=== PATIENT | female | born 1960 | race Caucasian/White ===

== ENCOUNTER → 2019-02-20 | Outpatient (CLI) | payer BC ==
--- NOTE | 2019-02-20 12:45 | CT ---
EXAMINATION TYPE: CT abdomen pelvis wo con DATE OF EXAM: 02/20/2019 HISTORY: Right sided flank pain. History of renal stones CT DLP: 778.1 mGycm. Automated Exposure Control for Dose Reduction was Utilized. TECHNIQUE: CT scan of the abdomen and pelvis is performed without oral or IV contrast. COMPARISON: Renal ultrasound February 11, 2015 FINDINGS: Within the limitations of a non-contrast study, the following observations are made. LUNG BASES: Some patchy bibasilar linear scarring and/or atelectasis. LIVER/GB: No significant abnormality is appreciated. PANCREAS: Some mild to moderate generalized atrophy of the pancreas particularly distal body and tail . SPLEEN: Single calcification posterior spleen axial image 27. ADRENALS: No significant abnormality is seen. KIDNEYS: No renal stones or hydronephrosis is clearly seen bilaterally. Left mid abdominal phlebolith noted axial image 70 just lateral to the left proximal to mid ureter. BOWEL: Suboptimal evaluation of bowel without enteric contrast. No suspicious small bowel dilatation. Terminal ileum seen in the upper right abdomen axial images 95 and 96. Slightly abnormal in position ing along right slight posterior aspect. The right colon shows moderate to severe concentric wall thi ckening up to the proximal to mid transverse colon where there is moderate to severe fecal prominence . There is mild to moderate concentric wall thickening distal transverse colon through the splenic fl exure and involving entire left colon with mild mucosal thickening seen in the remainder of the sigmo id colon. There are suspected small bowel feces sign involving the anterior right pelvis with focal p rominent fecal filled small bowel loop axial image 105 measuring 3.2 cm diameter mildly dilated. GENITAL ORGANS: Uterus poorly seen and may be surgically absent or atrophic. LYMPH NODES: No greater than 1cm abdominal or pelvic lymph nodes are appreciated. OSSEOUS STRUCTURES: Severe disc space narrowing lumbosacral junction with moderate anterior spurring. OTHER: No significant additional abnormality is seen. IMPRESSION: 1. No renal stones or hydronephrosis is seen bilaterally. 2. Overall nonspecific but favor nonobstructive bowel gas pattern. Small bowel feces sign consistent with delayed passage of ingested material to colonic level. Multifocal colitis is thought present mos t prominent involving the right colon including hepatic flexure. Moderate to severe fecal stasis mid to distal transverse colon. Correlate clinically. Differential includes infectious and inflammatory e tiologies.
== END | disposition home or self-care (01) ==
LOC: RADCTMAIN 11:43
PROVIDERS: ATTEND Urology
DX: K52.9 Noninfective gastroenteritis and colitis, unspecified (principal); K59.8 Other specified functional intestinal disorders; N23 Unspecified renal colic
CPT/HCPCS: 74176

== ENCOUNTER 2019-06-10 13:17 | Inpatient (IN) | payer BC ==
[2019-06-10 13:48] LABS: Basophils % (A) 0 %; Eosinophils # (A) 0.1 k/uL (0-0.7); Eosinophils % (A) 2 %; HCT 37.5 % (34.0-46.0); HGB 12.1 gm/dL (11.4-16.0); Lymphocytes # (A) 0.6 k/uL (1.0-4.8); Lymphocytes % (A) 10 %; MCH 28.5 pg (25.0-35.0); MCHC 32.3 g/dL (31.0-37.0); MCV 88.2 fL (80.0-100.0); Mean Platelet Volume 7.7; Monocytes # (A) 0.4 k/uL (0-1.0); Monocytes % (A) 6 %; Neutrophils # (A) 4.6 k/uL (1.3-7.7); Neutrophils % (A) 79 %; Platelet Count 188 k/uL (150-450); RBC 4.25 m/uL (3.80-5.40); RDW 12.9 % (11.5-15.5); WBC 5.9 k/uL (3.8-10.6)
[2019-06-10 13:58] LABS: ALT 12 U/L (4-34); AST 19 U/L (14-36); African American GFR (CKD) >90 (>60 ml/min/1.73 sqM); Albumin 3.8 g/dL (3.5-5.0); Alkaline Phosphatase 110 U/L (38-126); Anion Gap 12 mmol/L; Blood Urea Nitrogen 18 mg/dL (7-17); Calcium 8.6 mg/dL (8.4-10.2); Carbon Dioxide 23 mmol/L (22-30); Chloride 99 mmol/L (98-107); Glucose 394 mg/dL (74-99); Non-African American GFR(CKD) 87 (>60 ml/min/1.73 sqM); Potassium 4.3 mmol/L (3.5-5.1); Sodium 134 mmol/L (137-145); Total Bilirubin 0.9 mg/dL (0.2-1.3); Total Protein 6.9 g/dL (6.3-8.2)
--- NOTE | 2019-06-10 14:03 | XR ---
EXAMINATION TYPE: XR chest 2V DATE OF EXAM: 06/10/2019 COMPARISON: NONE HISTORY: Cough TECHNIQUE: FINDINGS: Heart is normal. There is a mild infiltrate in the left lower lobe posteriorly. The other l shamir vargas are clear. Diaphragm is normal. Bony thorax is intact. There is no heart failure. IMPRESSION: Mild left lower lobe pneumonia.
--- NOTE | 2019-06-10 14:06 | ED ---
General Adult HPI - General Source: patient, RN notes reviewed Mode of arrival: ambulatory Limitations: no limitations <Morgan Lin - Last Filed: 06/10/19 14:33> <Zafar Mcdermott - Last Filed: 06/10/19 14:41> - General Chief complaint: Upper Respiratory Infection Stated complaint: SOB Time Seen by Provider: 06/10/19 13:24 - History of Present Illness Initial comments: Is a 58-year-old female presents emergency Department chief complaint chest pain, shortness of breath. Patient states that symptoms started over the last couple days she's developed a fever 101-102 at home. No Tylenol Motrin taken today. Patient states that her chest feels very heavy feels like something sitting on her. Patient does admit she had a cough which is nonproductive. Patient does admit she is a type I diabetic on insulin pump her blood sugars have been elevated in the 300s. Patient denies any ear pain, sore throat has no complaints of abdominal pain including nausea vomiting diarrhea constipation no sick contacts. Patient has no prior cardiac disease. (Morgan Lin) - Related Data Home Medications Medication Instructions Recorded Confirmed Aspirin 81 mg PO QAM 01/02/15 01/02/15 Cholecalciferol [Vitamin D3] 2,000 unit PO QAM 01/02/15 01/02/15 Ciprofloxacin HCl [Cipro] 500 mg PO Q12HR 01/02/15 01/02/15 Docusate [Colace] 100 mg PO DAILY 01/02/15 01/02/15 Fluticasone Propionate [Flonase 1 spray EA NOSTRIL BID PRN 01/02/15 01/02/15 Allergy Relief] Gabapentin [Neurontin] 300 mg PO BID@0700,1500 01/02/15 01/02/15 Gabapentin [Neurontin] 600 mg PO HS@2300 01/02/15 01/02/15 INSULIN LISPRO (HumaLOG) [HumaLOG] See Protocol SQ CONTINUOUS 01/02/15 01/02/15 Levothyroxine Sodium [Synthroid] 50 mcg PO QAM 01/02/15 01/02/15 Lisinopril [Zestril] 20 mg PO HS 01/02/15 01/02/15 Simvastatin [Zocor] 20 mg PO HS 01/02/15 01/02/15 Previous Rx's Medication Instructions Recorded Hydrocodone/Acetaminophen [Christmas 1 - 2 each PO Q4HR PRN #15 tab 01/03/15 5-325] Allergies Allergy/AdvReac Type Severity Reaction Status Date / Time adhesive tape Allergy Rash/Hives Verified 06/10/19 14:30 codeine Allergy rash & Verified 06/10/19 13:23 constipation meloxicam Allergy very Verified 06/10/19 14:29 frequent bloody noses tramadol Allergy blood Verified 06/10/19 14:29 sugar drops Review of Systems ROS Other: All systems not noted in ROS Statement are negative. <Morgan Lin - Last Filed: 06/10/19 14:33> ROS Other: All systems not noted in ROS Statement are negative. <Zafar Mcdermott - Last Filed: 06/10/19 14:41> ROS Statement: Those systems with pertinent positive or pertinent negative responses have been documented in the HPI. Past Medical History Past Medical History: Diabetes Mellitus, Hyperlipidemia, Hypertension, Thyroid Disorder Additional Past Medical History / Comment(s): anemia, stress incontinence, arthritis, chronic back pain, History of Any Multi-Drug Resistant Organisms: None Reported Past Surgical History: Appendectomy, Back Surgery, Section, Hysterectomy Additional Past Surgical History / Comment(s): Back injections, bilateral cataract removal with lens implants, cervical fusion, hysterectomy with bilateral partial oophorectomies, colonoscopy-normal, x 1. Additional Past Anesthesia/Blood Transfusion Reaction / Comment(s): Pt has never recieved blood. Past Psychological History: No Psychological Hx Reported Smoking Status: Never smoker Past Alcohol Use History: None Reported Past Drug Use History: None Reported - Past Family History Father Family Medical History: Cancer Additional Family Medical History / Comment(s): Father of bone cancer at age 72. Mother Additional Family Medical History / Comment(s): Mother of cirrhosis of the liver at age 45yrs. <Morgan Lin - Last Filed: 06/10/19 14:33> General Exam Limitations: no limitations General appearance: alert, in no apparent distress Head exam: Present: atraumatic, normocephalic, normal inspection Eye exam: Present: normal appearance, PERRL, EOMI. Absent: scleral icterus, c onjunctival injection, periorbital swelling ENT exam: Present: normal exam, normal oropharynx, mucous membranes moist Neck exam: Present: normal inspection. Absent: tenderness, meningismus, lymphadenopathy Respiratory exam: Present: normal lung sounds bilaterally. Absent: respiratory distress, wheezes, rales, rhonchi, stridor Cardiovascular Exam: Present: regular rate, normal rhythm, normal heart sounds. Absent: systolic murmur, diastolic murmur, rubs, gallop, clicks GI/Abdominal exam: Present: soft, normal bowel sounds. Absent: distended, tenderness, guarding, rebound, rigid Neurological exam: Present: alert, oriented X3, CN II-XII intact Skin exam: Present: warm, dry, intact, normal color. Absent: rash <Morgan Lin - Last Filed: 06/10/19 14:33> Course <Zafar Mcdermott - Last Filed: 06/10/19 14:41> Vital Signs 06/10/19 06/10/19 06/10/19 13:20 14:00 14:23 Temperature 98.0 F 98.1 F Pulse Rate 91 87 82 Respiratory 18 13 14 Rate Blood Pressure 138/71 126/49 129/52 O2 Sat by Pulse 100 97 97 Oximetry - Reevaluation(s) Reevaluation #1: 06/10/19 14:40 PA supervision: I personally evaluate this case and patient patient presents with complaints of chest pain shortness of breath is evidence of pneumonia. Patient be admitted the case is discussed with Dr. Esquivel (Zafar Mcdermott) EKG Findings - EKG Comments: EKG Findings:: EKG performed at 13:31 normal sinus rhythm rate of 89 AR 132 QRS 84 QT status QTC 350/425 <Morgan Lin - Last Filed: 06/10/19 14:33> Medical Decision Making - Lab Data Result diagrams: 06/10/19 13:30 06/10/19 13:30 <Morgan Lin - Last Filed: 06/10/19 14:33> - Lab Data Result diagrams: 06/10/19 13:30 06/10/19 13:30 <Zafar Mcdermott - Last Filed: 06/10/19 14:41> - Medical Decision Making 58-year-old female presents emergency room for chest pain, chest pressure and cough. Patient's complaint of fever at home, afebrile at this time this x-ray shows evidence of pneumonia, patient's found to be leukopenic, elevated d-dimer, elevated CRP this concern for probable COVID 19. Patient was given Rocephin, doxycycline, hydroxychloroquine at this time. Case discussed with Dr. Esquivel who will evaluate the patient and admitted at this time. (Morgna Lin) - Lab Data Lab Results 06/10/19 06/10/19 06/10/19 Range/Units 13:30 13:30 13:30 WBC 5.9 (3.8-10.6) k/uL RBC 4.25 (3.80-5.40) m/uL Hgb 12.1 (11.4-16.0) gm/dL Hct 37.5 (34.0-46.0) % MCV 88.2 (80.0-100.0) fL MCH 28.5 (25.0-35.0) pg MCHC 32.3 (31.0-37.0) g/dL RDW 12.9 (11.5-15.5) % Plt Count 188 (150-450) k/uL Neutrophils % 79 % Lymphocytes % 10 % Monocytes % 6 % Eosinophils % 2 % Basophils % 0 % Neutrophils # 4.6 (1.3-7.7) k/uL Lymphocytes # 0.6 L (1.0-4.8) k/uL Monocytes # 0.4 (0-1.0) k/uL Eosinophils # 0.1 (0-0.7) k/uL Basophils # 0.0 (0-0.2) k/uL PT 9.8 (9.0-12.0) sec INR 0.9 (<1.2) APTT 19.0 L (22.0-30.0) sec D-Dimer 0.76 H (<0.60) mg/L FEU Sodium 134 L (137-145) mmol/L Potassium 4.3 (3.5-5.1) mmol/L Chloride 99 (98-107) mmol/L Carbon Dioxide 23 (22-30) mmol/L Anion Gap 12 mmol/L BUN 18 H (7-17) mg/dL Creatinine 0.76 (0.52-1.04) mg/dL Est GFR (CKD-EPI)AfAm >90 (>60 ml/min/1.73 sqM) Est GFR (CKD-EPI)NonAf 87 (>60 ml/min/1.73 sqM) Glucose 394 H (74-99) mg/dL Plasma Lactic Acid Bala (0.7-2.0) mmol/L Calcium 8.6 (8.4-10.2) mg/dL Magnesium 2.0 (1.6-2.3) mg/dL Total Bilirubin 0.9 (0.2-1.3) mg/dL AST 19 (14-36) U/L ALT 12 (4-34) U/L Alkaline Phosphatase 110 (38-126) U/L C-Reactive Protein 153.9 H (<10.0) mg/L Total Protein 6.9 (6.3-8.2) g/dL Albumin 3.8 (3.5-5.0) g/dL Influenza Type A RNA (Not Detectd) Influenza Type B (PCR) (Not Detectd) 06/10/19 06/10/19 Range/Units 13:30 13:45 WBC (3.8-10.6) k/uL RBC (3.80-5.40) m/uL Hgb (11.4-16.0) gm/dL Hct (34.0-46.0) % MCV (80.0-100.0) fL MCH (25.0-35.0) pg MCHC (31.0-37.0) g/dL RDW (11.5-15.5) % Plt Count (150-450) k/uL Neutrophils % % Lymphocytes % % Monocytes % % Eosinophils % % Basophils % % Neutrophils # (1.3-7.7) k/uL Lymphocytes # (1.0-4.8) k/uL Monocytes # (0-1.0) k/uL Eosinophils # (0-0.7) k/uL Basophils # (0-0.2) k/uL PT (9.0-12.0) sec INR (<1.2) APTT (22.0-30.0) sec D-Dimer (<0.60) mg/L FEU Sodium (137-145) mmol/L Potassium (3.5-5.1) mmol/L Chloride (98-107) mmol/L Carbon Dioxide (22-30) mmol/L Anion Gap mmol/L BUN (7-17) mg/dL Creatinine (0.52-1.04) mg/dL Est GFR (CKD-EPI)AfAm (>60 ml/min/1.73 sqM) Est GFR (CKD-EPI)NonAf (>60 ml/min/1.73 sqM) Glucose (74-99) mg/dL Plasma Lactic Acid Bala 1.4 (0.7-2.0) mmol/L Calcium (8.4-10.2) mg/dL Magnesium (1.6-2.3) mg/dL Total Bilirubin (0.2-1.3) mg/dL AST (14-36) U/L ALT (4-34) U/L Alkaline Phosphatase (38-126) U/L C-Reactive Protein (<10.0) mg/L Total Protein (6.3-8.2) g/dL Albumin (3.5-5.0) g/dL Influenza Type A RNA Not Detected (Not Detectd) Influenza Type B (PCR) Not Detected (Not Detectd) Disposition <Morgan Lin - Last Filed: 06/10/19 14:33> <Zafar Mcdermott - Last Filed: 06/10/19 14:41> Clinical Impression: Pneumonia, Hyperglycemia, Chest pain Narrative: Probable COVID 19 (Morgan Lin) Disposition: ADMITTED IP TO THIS HOSP Condition: Serious Referrals: Erwin Jeffries MD [Primary Care Provider] - 1-2 days
[2019-06-10 14:10] LABS: C Reactive Protein 153.9 mg/L (<10.0)
[2019-06-10 14:11] LABS: INR 0.9 (<1.2); Prothrombin Time 9.8 sec (9.0-12.0)
[2019-06-10 14:15] LABS: D-Dimer 0.76 mg/L FEU (<0.60)
[2019-06-10] MEDS ORDERED: cefTRIAXone IN SWFI 1,000 MG/10 ML SYRINGE IVP STA (14:16)
[2019-06-10] MEDS ORDERED: ALBUTEROL HFA INHALER INHALATION PRN (14:28)
[2019-06-10] MEDS ORDERED: HYDROcodone/APAP 5-325MG 1 EACH TAB PO PRN (14:36)
[2019-06-10] MEDS ORDERED: DOXYCYCLINE 100 MG in SODIUM CHLORIDE 0.9% 100 ML IVPB ONE (15:00)
[2019-06-10 16:48] LABS: Glucose,Whole Blood 275 mg/dL (75-99)
[2019-06-10] MEDS: INSULIN ASPART (NovoLOG) 100 UNIT/ML VIAL SQ SCH ×2 (19:04→20:39)
[2019-06-10] MEDS ORDERED: NON FORMULARY DRUG IV SCH (19:15)
[2019-06-10] MEDS: HYDROXYCHLOROQUINE SULFATE 200 MG TAB PO SCH (20:39)
[2019-06-10 20:51] LABS: Glucose,Whole Blood 179 mg/dL (75-99)
[2019-06-10] MEDS ORDERED: LISINOPRIL 20 MG TAB PO SCH (21:00)
[2019-06-10] MEDS ORDERED: GABAPENTIN 300 MG CAP PO STA (21:45)
--- NOTE | 2019-06-10 23:29 | P.HPIM ---
History of Present Illness H&P Date: 06/10/19 Chief Complaint: Shortness of breath and fever Patient is a 58-year-old female with a known history of hypertension, diabetes type 1 on insulin pump, hypothyroidism and other multiple medical problems came to the hospital with the complaints of fever and shortness of breath for the past 3 days. Patient states that she was febrile at home with T-max of 102. Patient is also complaining of her chest feeling very heavy and difficulty in breathing. Does have cough without sputum production. No history of prior smoking or no history of asthma. Denied any nausea or vomiting. No complaint of abdominal pain. No diarrhea. Denied any sick contacts. Denied any leg swelling. Chest x-ray showed mild left lower lobe pneumonia. EKG showed normal sinus rhythm. Patient is currently saturating well on room air. WBC 5.9, lymphocytes 0.6 D-dimer slightly elevated 0.76, blood sugar is 356 and CRP 153.9. Influenza negative. Review of Systems Constitutional: Fever and chills and generalized weakness. No weight loss. Abdomen: Patient denied nausea vomiting and diarrhea and abdominal pain. Cardiovascular: Patient denies any chest pain or short of breath no palpitations. Chest tightness. Respiratory: Cough without shortness of breath and shortness of breath Neurologic: Patient denied any numbness or tingling headache. Musculoskeletal: Patient denies any complaints of joint swelling or deformity. Skin: Negative Psychiatric: Negative Endocrine: No heat or cold intolerance. No recent weight gain. Genitourinary: No dysuria or hematuria. All other 14 point ROS negative except the above Past Medical History Past Medical History: Diabetes Mellitus, Hyperlipidemia, Hypertension, Thyroid Disorder Additional Past Medical History / Comment(s): anemia, stress incontinence, arthritis, chronic back pain, History of Any Multi-Drug Resistant Organisms: None Reported Past Surgical History: Appendectomy, Back Surgery, Section, Hysterectomy Additional Past Surgical History / Comment(s): Back injections, bilateral cataract removal with lens implants, cervical fusion, hysterectomy with bilateral partial oophorectomies, colonoscopy-normal, x 1. Additional Past Anesthesia/Blood Transfusion Reaction / Comment(s): Pt has never recieved blood. Smoking Status: Never smoker Past Alcohol Use History: None Reported Past Drug Use History: None Reported - Past Family History Father Family Medical History: Cancer Additional Family Medical History / Comment(s): Father of bone cancer at age 72. Mother Additional Family Medical History / Comment(s): Mother of cirrhosis of the liver at age 45yrs. Medications and Allergies Home Medications Medication Instructions Recorded Confirmed Type Aspirin 81 mg PO DAILY 01/02/15 06/10/19 History Cholecalciferol [Vitamin D3] 2,000 unit PO DAILY 01/02/15 06/10/19 History Gabapentin [Neurontin] 300 mg PO BID@0700,1500 01/02/15 06/10/19 History Gabapentin [Neurontin] 600 mg PO HS@2300 01/02/15 06/10/19 History INSULIN LISPRO (HumaLOG) [HumaLOG] See Protocol SQ CONTINUOUS 01/02/15 06/10/19 History Simvastatin [Zocor] 20 mg PO HS 01/02/15 06/10/19 History Estradiol [Estrace] 1 mg PO DAILY 06/10/19 06/10/19 History Famotidine 20 mg PO BID-W/MEALS 06/10/19 06/10/19 History Levothyroxine Sodium [Synthroid] 88 mcg PO DAILY 06/10/19 06/10/19 History Losartan [Cozaar] 25 mg PO DAILY 06/10/19 06/10/19 History Tolterodine ER [Detrol LA] 4 mg PO DAILY 06/10/19 06/10/19 History metroNIDAZOLE 1% GEL [Metrogel 1%] 1 applic TOPICAL DAILY 06/10/19 06/10/19 History Allergies Allergy/AdvReac Type Severity Reaction Status Date / Time adhesive tape Allergy Rash/Hives Verified 06/10/19 14:30 codeine Allergy rash & Verified 06/10/19 13:23 constipation meloxicam Allergy very Verified 06/10/19 14:29 frequent bloody noses tramadol Allergy blood Verified 06/10/19 14:29 sugar drops Physical Exam Vitals: Vital Signs Temp Pulse Pulse Resp BP BP Pulse Ox 06/10/19 20:00 98.6 F 83 18 142/66 95 06/10/19 16:00 98.6 F 90 20 129/67 99 06/10/19 15:35 82 14 134/56 97 06/10/19 14:23 82 14 129/52 97 06/10/19 14:00 98.1 F 87 13 126/49 97 06/10/19 13:20 98.0 F 91 18 138/71 100 Intake and Output 06/10/19 06/10/19 06/10/19 06:59 14:59 22:59 Intake Total 240 Balance 240 Intake: Oral 240 Other: Voiding Method Toilet Weight 87.543 kg PHYSICAL EXAMINATION: Patient is lying in the bed comfortably, no acute distress, awake alert and oriented.. HEENT: Normocephalic. Neck is supple. Pupils reactive. Nostrils clear. Oral cavity is moist. Ears reveal no drainage. Neck reveals no JVD, carotid bruits, or thyromegaly. CHEST EXAMINATION: Trachea is central. Symmetrical expansion. Bibasilar diminished air entry. Lung vargas clear to auscultation and percussion. CARDIAC: Normal S1, S2 with no gallops. No murmurs ABDOMEN: Soft. Bowel sounds normal. No organomegaly. No abdominal bruits. Extremities: reveal no edema. No clubbing or cyanosis Neurologically awake, alert, oriented x3 with well-coordinated movements. No focal deficits noted Skin: No rash or skin lesions. Psychiatric: Coperative. Nonsuicidal Musculoskeletal: No joint swelling or deformity. Normal range of motion. Results CBC & Chem 7: 06/10/19 13:30 06/10/19 13:30 Labs: Abnormal Lab Results - Last 24 Hours (Table) 06/10/19 06/10/19 06/10/19 Range/Units 13:30 13:30 13:30 Lymphocytes # 0.6 L (1.0-4.8) k/uL APTT 19.0 L (22.0-30.0) sec D-Dimer 0.76 H (<0.60) mg/L FEU Sodium 134 L (137-145) mmol/L BUN 18 H (7-17) mg/dL Glucose 394 H (74-99) mg/dL POC Glucose (mg/dL) (75-99) mg/dL C-Reactive Protein 153.9 H (<10.0) mg/L 06/10/19 06/10/19 Range/Units 16:42 20:33 Lymphocytes # (1.0-4.8) k/uL APTT (22.0-30.0) sec D-Dimer (<0.60) mg/L FEU Sodium (137-145) mmol/L BUN (7-17) mg/dL Glucose (74-99) mg/dL POC Glucose (mg/dL) 275 H 179 H (75-99) mg/dL C-Reactive Protein (<10.0) mg/L Thrombosis Risk Factor Assmnt - DVT/VTE Prophylaxis DVT/VTE Prophylaxis: Pharmacologic Prophylaxis ordered - Choose All That Apply Any of the Below Risk Factors Present?: Yes Each Factor Represents 1 point: Age 41-60 years, Obesity (BMI >25) Other Risk Factors: No Other congenital or acquired thrombophilia - If yes, enter type in comment: No Thrombosis Risk Factor Assessment Total Risk Factor Score: 2 Thrombosis Risk Factor Assessment Level: Low Risk Assessment and Plan Assessment: -Acute febrile illness with dry cough and shortness of breath likely suspicious for covid 19 infection. Patient does have lymphopenia and slightly elevated d- dimer level and CRP level. Patient was started on hydroxychloroquine. Patient is currently on room air. Consider pulmonary evaluation. -Mild left lower lobe pneumonia. -Hyperglycemia with uncontrolled diabetes type 1 currently on insulin pump. - Hypertension Hyperlipidemia Hypothyroidism No history of smoking DVT prophylaxis. Plan: Patient will be continued on gentle hydration. Continue with oxygen therapy and monitor closely. Telemetry monitoring. Patient was started back on insulin pump and sliding scale as needed. Continue with home medications. Follow Covid 19 test report. Supportive therapy. Further recommendations based on the clinical course. Time with Patient: Greater than 30
[2019-06-11] MEDS: HEPARIN SODIUM,PORCINE 5,000 UNIT/ML 1 ML VIAL SQ SCH ×2 (01:27→08:19)
[2019-06-11] MEDS: SODIUM CHLORIDE 0.9% 1,000 ML IV SCH ×2 (01:28→11:41)
[2019-06-11 03:30] VITALS: RESP 18
[2019-06-11 05:43] LABS: Glucose,Whole Blood 228 mg/dL (75-99)
[2019-06-11] MEDS: INSULIN ASPART (NovoLOG) 100 UNIT/ML VIAL SQ SCH (06:05)
[2019-06-11 06:29] LABS: Basophils % (A) 0 %; Eosinophils # (A) 0.2 k/uL (0-0.7); Eosinophils % (A) 3 %; HCT 33.8 % (34.0-46.0); Lymphocytes # (A) 0.9 k/uL (1.0-4.8); Lymphocytes % (A) 19 %; MCH 28.6 pg (25.0-35.0); MCHC 32.6 g/dL (31.0-37.0); Mean Platelet Volume 7.8; Monocytes # (A) 0.4 k/uL (0-1.0); Monocytes % (A) 8 %; Neutrophils # (A) 3.2 k/uL (1.3-7.7); Neutrophils % (A) 66 %; Platelet Count 200 k/uL (150-450); RBC 3.84 m/uL (3.80-5.40); WBC 4.9 k/uL (3.8-10.6)
[2019-06-11] MEDS ORDERED: LEVOTHYROXINE 50 MCG TAB PO SCH (06:30)
[2019-06-11 06:43] LABS: African American GFR (CKD) >90 (>60 ml/min/1.73 sqM); Anion Gap 10 mmol/L; Blood Urea Nitrogen 17 mg/dL (7-17); Calcium 8.3 mg/dL (8.4-10.2); Carbon Dioxide 22 mmol/L (22-30); Chloride 103 mmol/L (98-107); Glucose 267 mg/dL (74-99); Non-African American GFR(CKD) >90 (>60 ml/min/1.73 sqM); Potassium 4.3 mmol/L (3.5-5.1); Sodium 135 mmol/L (137-145)
[2019-06-11] MEDS: HYDROXYCHLOROQUINE SULFATE 200 MG TAB PO SCH (08:20)
[2019-06-11] MEDS ORDERED: INSULIN LISPRO (For Pump) 100 UNIT/ML VIAL SQ-PUMP SCH (09:00)
--- NOTE | 2019-06-11 09:14 | CT ---
EXAMINATION TYPE: CT chest angio for PE DATE OF EXAM: 06/11/2019 COMPARISON: NONE HISTORY: elevated d-dimer CT DLP: 435.5 mGycm. Automated Exposure Control for Dose Reduction was Utilized. CONTRAST: CTA scan of the thorax is performed with IV Contrast, patient injected with 100 mL of Isovue 370, pul monary embolism protocol. MIP Images are created on CT scanner and reviewed. FINDINGS: LUNGS: Focal left basilar consolidation is seen with air bronchograms and surrounding groundglass opa cities. Geographic groundglass opacities are scattered throughout both lungs. No pneumothorax or pleu ral effusion. There is no pleural effusion or pneumothorax seen. The tracheobronchial tree is nazario nt. MEDIASTINUM: There is satisfactory enhancement of the pulmonary artery and its branches, there is no CT evidence for pulmonary embolism. There are no greater than 1 cm hilar or mediastinal lymph nodes. Heart is mildly enlarged. No pericardial effusion. The phase of contrast limits evaluation for coron arlen artery calcifications, however no gross coronary calcifications are seen. OTHER: Mild multilevel degenerative change of the spine. IMPRESSION: 1. Left lower lobe pneumonia. Multifocal geographic groundglass opacities also suggests a degree of f luid overload. 2. No evidence of pulmonary embolus.
[2019-06-11] MEDS ORDERED: INSULIN ASPART (NovoLOG) 100 UNIT/ML VIAL SQ PRN (09:45)
[2019-06-11] MEDS ORDERED: INSULIN PUMP BASAL RATES 1 EACH MISC MISCELLANE PRN (09:45)
[2019-06-11] MEDS ORDERED: INSPUCOR MISCELLANE PRN (09:45)
[2019-06-11] MEDS ORDERED: INSULIN PUMP TARGET GLUCOSE 1 EACH MISC MISCELLANE PRN (10:50)
[2019-06-11] MEDS ORDERED: INSULIN PUMP ACTIVE INSULIN 1 EACH MISC MISCELLANE PRN (10:50)
[2019-06-11 11:15] VITALS: BP 119/60; PULSE 82; TEMP 98.4
[2019-06-11 11:35] LABS: Glucose,Whole Blood 211 mg/dL (75-99)
--- NOTE | 2019-06-11 12:02 | P.DS ---
Providers Date of admission: 06/10/19 14:36 Attending physician: Odalis Esquivel Primary care physician: [facility] Hospital Course: 58-year-old female with a known history of hypertension, diabetes type 1 on insulin pump, hypothyroidism and other multiple medical problems came to the hospital with the complaints of fever and shortness of breath for the past 3 days. Patient states that she was febrile at home with T-max of 102. Patient is also complaining of her chest feeling very heavy and difficulty in breathing. Does have cough without sputum production. No history of prior smoking or no history of asthma. Denied any nausea or vomiting. No complaint of abdominal pain. No diarrhea. Denied any sick contacts. Denied any leg swelling. Chest x-ray showed mild left lower lobe pneumonia. EKG showed normal sinus rhythm. Patient is currently saturating well on room air. WBC 5.9, lymphocytes 0.6 D-dimer slightly elevated 0.76, blood sugar is 356 and CRP 153.9. Influenza negative. 06/11/2019 Patient's COVID19 testing is still pending patient is clinically doing well will be discharged on empiric the hydroxychloroquine and Rocephin as pneumonia cannot be ruled out completely. Note: Because of COVID 19 isolation, some of the history and physical exam findings or indirect and obtained from nursing staff, and other physician examinations to avoid unnecessary contact with the patient. PHYSICAL EXAMINATION: GENERAL: The patient is alert and oriented x3, not in any acute distress. Well developed, well nourished. HEENT: Pupils are round and equally reacting to light. EOMI. No scleral icterus. No conjunctival pallor. Normocephalic, atraumatic. No pharyngeal erythema. No thyromegaly. CARDIOVASCULAR: S1 and S2 present. No murmurs, rubs, or gallops. PULMONARY: Chest is clear to auscultation, no wheezing or crackles. ABDOMEN: Soft, nontender, nondistended, normoactive bowel sounds. No palpable organomegaly. MUSCULOSKELETAL: No joint swelling or deformity. EXTREMITIES: No cyanosis, clubbing, or pedal edema. NEUROLOGICAL: Gross neurological examination did not reveal any focal deficits. SKIN: No rashes. Assessment and Plan Assessment: -Acute febrile illness with dry cough and shortness of breath likely suspicious for covid 19 infection. Patient does have lymphopenia and slightly elevated d- dimer level and CRP level. Patient was started on hydroxychloroquine. Patient is currently on room air. -Mild left lower lobe pneumonia. -Hyperglycemia with uncontrolled diabetes type 1 currently on insulin pump. - Hypertension Hyperlipidemia Hypothyroidism No history of smoking DVT prophylaxis. Patient Condition at Discharge: Serious Plan - Discharge Summary Discharge Rx Participant: Yes New Discharge Prescriptions: New Cefuroxime Axetil [Ceftin] 500 mg PO BID 5 Days #10 tab Hydroxychloroquine Sulfate [Plaquenil] 200 mg PO BID #10 tab Albuterol Inhaler (Bulk) [Ventolin Hfa Inhaler (Bulk)] 1 - 2 puff INHALATION Q6HR PRN #1 inhaler PRN Reason: Shortness Of Breath Or Wheezing sitaGLIPtin PHOSPHATE [Januvia] 50 mg PO DAILY #30 tab Continue Cholecalciferol [Vitamin D3 (25 Mcg = 1000 Iu)] 2,000 unit PO DAILY Aspirin 81 mg PO DAILY INSULIN LISPRO (HumaLOG) [humaLOG] See Protocol SQ CONTINUOUS Gabapentin [Neurontin] 300 mg PO BID@0700,1500 Simvastatin [Zocor] 20 mg PO HS Gabapentin [Neurontin] 600 mg PO HS@2300 Famotidine 20 mg PO BID-W/MEALS metroNIDAZOLE 1% GEL [Metrogel 1%] 1 applic TOPICAL DAILY Tolterodine ER [Detrol LA] 4 mg PO DAILY Losartan [Cozaar] 25 mg PO DAILY Levothyroxine Sodium [Synthroid] 88 mcg PO DAILY Estradiol [Estrace] 1 mg PO DAILY Discharge Medication List Aspirin 81 mg PO DAILY 01/02/15 [History] Cholecalciferol [Vitamin D3 (25 Mcg = 1000 Iu)] 2,000 unit PO DAILY 01/02/15 [History] Gabapentin [Neurontin] 300 mg PO BID@0700,1500 01/02/15 [History] Gabapentin [Neurontin] 600 mg PO HS@2300 01/02/15 [History] INSULIN LISPRO (HumaLOG) [humaLOG] See Protocol SQ CONTINUOUS 01/02/15 [History] Simvastatin [Zocor] 20 mg PO HS 01/02/15 [History] Estradiol [Estrace] 1 mg PO DAILY 06/10/19 [History] Famotidine 20 mg PO BID-W/MEALS 06/10/19 [History] Levothyroxine Sodium [Synthroid] 88 mcg PO DAILY 06/10/19 [History] Losartan [Cozaar] 25 mg PO DAILY 06/10/19 [History] Tolterodine ER [Detrol LA] 4 mg PO DAILY 06/10/19 [History] metroNIDAZOLE 1% GEL [Metrogel 1%] 1 applic TOPICAL DAILY 06/10/19 [History] Albuterol Inhaler (Bulk) [Ventolin Hfa Inhaler (Bulk)] 1 - 2 puff INHALATION Q6HR PRN #1 inhaler 06/11/19 [Rx] Cefuroxime Axetil [Ceftin] 500 mg PO BID 5 Days #10 tab 06/11/19 [Rx] Hydroxychloroquine Sulfate [Plaquenil] 200 mg PO BID #10 tab 06/11/19 [Rx] sitaGLIPtin PHOSPHATE [Januvia] 50 mg PO DAILY #30 tab 06/11/19 [Rx] Follow up Appointment(s)/Referral(s): Erwin Jeffries MD [Primary Care Provider] - 1-2 days (Please call to set up appointment. You have to leave a message and they will follow up with you through tele health) Activity/Diet/Wound Care/Special Instructions: COVID sheet given Discharge Disposition: HOME SELF-CARE
[2019-06-11] MEDS ORDERED: INSULIN PUMP MEAL BOLUS 1 UNIT MISC MISCELLANE SCH (12:30)
[2019-06-11 18:36] LABS: Hemoglobin A1C 8.8 % (4.0-6.0)
[2019-06-11] MEDS ORDERED: HYDROXYCHLOROQUINE SULFATE 200 MG TAB PO SCH (21:00)
--- NOTE | 2019-06-13 09:07 | CDI ---
Documentation Clarification Form Date: 06/13/2019 CDS: Jenny Knox, CCS, CCDS Admit Date: 06/10/2019 Patient Name: Sigrid Lora Discharge Date: ATTENTION: The Clinical Documentation Specialists (CDI) and [facility] Coding Staff appreciate your assistance in clarifying documentation. Please respond to the clarification below the line at the bottom and electronically sign. The CDI & [facility] Coding staff will review the response and follow-up if needed. Please note: Queries are made part of the Legal Health Record. If you have any questions, please contact the author of this message via ITS. Dear Dr. Silvia Cordero: Per the Discharge Summary on 06/10: "Patient's COVID19 testing is still pending patient is clinically doing well will be discharged on empiric the hydroxychloroquine and Rocephin as pneumonia cannot be ruled out completely." The final determination from the COVID test result is not documented. History/Risk Factors: DM type I on an Insulin Pump, Hypertension, Hyperlipidemia, Hypothyroid. Clinical Indicators: The patient presented to the ED on 06/09 with SOB, chest pain, non-productive cough & fever, temp 101-102 at home. Blood sugars were elevated in the 300s. Diagnosed with pneumonia & DM I with hyperglycemia. Lab findings: COVID-10 negative on 06/09. Radiology findings: CXR 06/09: Mild LLLL pneumonia Vital Signs 06/09: T 98.0, P 91, R 18, BP 138/71, PO 100 RA Treatment: IV Rocephin, IV doxycycline, po Plaquenil, Insulin via insulin pump. In your professional opinion, can you please clarify the following: COVID-19 ruled out Other, please specify Unable to determine (Last Revision: June 2017) Unable to determine cannot determine if I don't have the testing MTDD
--- NOTE | 2019-06-14 08:35 | CDI ---
Documentation Clarification Form Date: 06/13/2019 08:56:00 AM From: Jenny Knox CCS, CCDS Admit Date: 06/10/2019 02:36:00 PM Patient Name: Sigrid oLra Visit Number: [id number] Discharge Date: 06/11/2019 02:06:00 PM ATTENTION: The Clinical Documentation Specialists (CDI) and [facility] Coding Staff appreciate your assistance in clarifying documentation. Please respond to the clarification below the line at the bottom and electronically sign. The CDI & [facility] Coding staff will review the response and follow-up if needed. Please note: Queries are made part of the Legal Health Record. If you have any questions, please contact the author of this message via ITS. Dr. Silvia Cordero: Per the Discharge Summary on 06/10: "Patient's COVID19 testing is still pending patient is clinically doing well will be discharged on empiric the hydroxychloroquine and Rocephin as pneumonia cannot be ruled out completely." The final determination from the COVID test result is not documented. Test results were returned on 06/09. History/Risk Factors: DM type I on an Insulin Pump, Hypertension, Hyperlipidemia, Hypothyroid. Clinical Indicators: The patient presented to the ED on 06/09 with SOB, chest pain, non-productive cough & fever, temp 101-102 at home. Blood sugars were elevated in the 300s. Diagnosed with pneumonia & DM I with hyperglycemia. Lab findings 06/09: COVID-10 Not detected. Radiology findings: CXR 06/09: Mild LLLL pneumonia Vital Signs 06/09: T 98.0, P 91, R 18, BP 138/71, PO 100 RA Treatment: IV Rocephin, IV doxycycline, po Plaquenil, Insulin via insulin pump. In your professional opinion, can you please clarify the following: COVID-19 ruled out Other, please specify Unable to determine (Last Revision: June 2017) COVID-19 ruled out MTDD
== END 2019-06-11 14:06 | disposition home or self-care (01) | DRG 195 ==
LOC: EC 13:17 → 3SCARD 14:36
PROVIDERS: ADMIT Internal Medicine; ATTEND Internal Medicine
DX: J18.9 Pneumonia, unspecified organism (principal); E03.9 Hypothyroidism, unspecified; E10.65 Type 1 diabetes mellitus with hyperglycemia; E78.5 Hyperlipidemia, unspecified; I10 Essential (primary) hypertension; G89.29 Other chronic pain; M19.90 Unspecified osteoarthritis, unspecified site; M54.9 Dorsalgia, unspecified; N39.3 Stress incontinence (female) (male); Z20.828 Contact with and (suspected) exposure to other viral communicable diseases; R07.9 Chest pain, unspecified; Z79.4 Long term (current) use of insulin; Z79.82 Long term (current) use of aspirin; Z79.890 Hormone replacement therapy; Z79.899 Other long term (current) drug therapy; Z96.41 Presence of insulin pump (external) (internal); Z90.710 Acquired absence of both cervix and uterus; Z96.1 Presence of intraocular lens; Z98.41 Cataract extraction status, right eye; Z98.42 Cataract extraction status, left eye; Z90.49 Acquired absence of other specified parts of digestive tract; Z90.722 Acquired absence of ovaries, bilateral; Z98.1 Arthrodesis status; Z88.5 Allergy status to narcotic agent; Z88.8 Allergy status to other drugs, medicaments and biological substances; Z80.8 Family history of malignant neoplasm of other organs or systems; Z83.79 Family history of other diseases of the digestive system
CPT/HCPCS: 36415; 71046; 71275; 80048; 80053; 82728; 83036; 83605; 83735; 85025; 85379; 85610; 85730; 86140; 87040; 87502; 87635; 93005; 96374; 99285

== ENCOUNTER → 2019-10-09 | Outpatient (CLI) | payer BC ==
[2019-10-09 15:40] LABS: HCT 36.4 % (34.0-46.0); HGB 11.7 gm/dL (11.4-16.0); MCH 29.1 pg (25.0-35.0); MCHC 32.1 g/dL (31.0-37.0); MCV 90.5 fL (80.0-100.0); Mean Platelet Volume 8.1; Platelet Count 184 k/uL (150-450); RBC 4.02 m/uL (3.80-5.40); RDW 14.1 % (11.5-15.5); WBC 4.4 k/uL (3.8-10.6)
[2019-10-09 15:58] LABS: African American GFR (CKD) >90 (>60 ml/min/1.73 sqM); Anion Gap 5 mmol/L; Blood Urea Nitrogen 9 mg/dL (7-17); Calcium 8.9 mg/dL (8.4-10.2); Carbon Dioxide 29 mmol/L (22-30); Chloride 105 mmol/L (98-107); Glucose 102 mg/dL (74-99); Non-African American GFR(CKD) >90 (>60 ml/min/1.73 sqM); Potassium 4.3 mmol/L (3.5-5.1); Sodium 139 mmol/L (137-145)
[2019-10-09 16:12] LABS: Partial Thromboplastin Time 24.7 sec (22.0-30.0); Prothrombin Time 10.2 sec (9.0-12.0)
[2019-10-09 16:16] LABS: Appearance,Urine Clear (Clear); Bilirubin,Urine Negative (Negative); Blood,Urine Negative (Negative); Color,Urine Light Yellow; Glucose,Urine (UA) Negative (Negative); Ketones,Urine Negative (Negative); Leukocyte Esterase,Urine Negative (Negative); Nitrite,Urine Negative (Negative); PH, Urine 7.5 (5.0-8.0); Protein,Urine Negative (Negative); Specific Gravity,Urine 1.008 (1.001-1.035); Urobilinogen,Urine <2.0 mg/dL (<2.0)
--- NOTE | 2019-10-09 16:39 | XR ---
EXAMINATION TYPE: XR chest 2V DATE OF EXAM: 10/09/2019 COMPARISON: 06/10/2019 INDICATION: Presurgical evaluation TECHNIQUE: Frontal and lateral views of the chest are obtained. FINDINGS: The heart size is normal. The pulmonary vasculature is normal. The lungs are clear. IMPRESSION: 1. No acute pulmonary process.
== END | disposition home or self-care (01) ==
LOC: LABPAT 14:32
PROVIDERS: ATTEND Orthopaedic Surgery Orthopaedic Surgery of the Spine
DX: Z01.818 Encounter for other preprocedural examination (principal); Z01.812 Encounter for preprocedural laboratory examination; M48.00 Spinal stenosis, site unspecified
CPT/HCPCS: 36415; 71046; 80048; 81003; 85027; 85610; 85730; 86850; 86900; 86901; 87070

== ENCOUNTER 2019-10-17 10:51 | Observation (INO) | payer BC ==
[2019-10-10 10:31] VITALS: BMI 32.8
[~2019-10-17 10:51] MED LIST: DEXAMETHASONE SOD PHOSPHATE 10 MG/ML 1 ML VIAL IV ONE; MIDAZOLAM 2 MG/2 ML VIAL IV PRN; ONDANSETRON 4 MG/2 ML VIAL IVP ONE; SCOPOLAMINE 1.5MG/72HR PATCH TRANSDERM ONE; ceFAZolin 1,000 MG in SODIUM CHLORIDE 0.9% IRRIGATIO 1,000 ML IRRIGATION ONE
[2019-10-17] MEDS ORDERED: ONDANSETRON 4 MG/2 ML VIAL ONE (11:35)
[2019-10-17 11:50] LABS: Glucose,Whole Blood 192 mg/dL (75-99)
[2019-10-17] MEDS ORDERED: LIDOCAINE 1% (10MG/ML) FOR IV START INTRADERMA ONE (11:57)
[2019-10-17] MEDS: LACTATED RINGERS 1,000 ML IV SCH (11:57)
[2019-10-17] MEDS ORDERED: ROCURONIUM BROMIDE 10 MG/ML 5 ML VIAL IV ONE (14:05)
[2019-10-17] MEDS ORDERED: PROPOFOL 10 MG/ML 20 ML VIAL IV ONE (14:05)
[2019-10-17] MEDS ORDERED: SUCCINYLCHOLINE CHLORIDE 100 MG/5 ML SYR IV ONE (14:05)
[2019-10-17] MEDS ORDERED: NEOSTIGMINE 1 MG/ML 10 ML VIAL ONE (14:05)
[2019-10-17] MEDS ORDERED: MIDAZOLAM 2 MG/2 ML VIAL ONE (14:05)
[2019-10-17] MEDS ORDERED: fentaNYL (PF) 50 MCG/ML 2 ML AMP ONE (14:05)
[2019-10-17] MEDS ORDERED: GLYCOPYRROLATE 0.2 MG/ML 2 ML VIAL ONE (14:05)
[2019-10-17] MEDS ORDERED: LIDOCAINE 1% INJ 10MG/ML (20 ML MDV) ONE (14:05)
[2019-10-17] MEDS ORDERED: LIDOCAINE 0.5%-EPI 1:200,000 50 ML VIAL SQ ONE (14:10)
[2019-10-17] MEDS ORDERED: THROMBIN (BOVINE) 5,000 UNIT VIAL TOPICAL ONE (14:10)
[2019-10-17] MEDS ORDERED: GELATIN SPONGE,ABSORB (LARGE) 1 EACH SPONGE TOPICAL ONE (14:10)
[2019-10-17] MEDS ORDERED: HYDROmorphone 1 MG/ML 1 ML SYRINGE IVP PRN (16:46)
[2019-10-17] MEDS ORDERED: ONDANSETRON 4 MG/2 ML VIAL IVP PRN (16:46)
[2019-10-17] MEDS ORDERED: BENZOCAINE/MENTHOL LOZENG 1 EACH LOZENGE MUCOUS MEM PRN (16:46)
[2019-10-17] MEDS ORDERED: MAGNESIUM HYDROXIDE 2,400 MG/10 ML CUP PO PRN (16:46)
[2019-10-17] MEDS ORDERED: HYDROcodone/APAP 5-325MG 1 EACH TAB PO PRN (16:46)
[2019-10-17] MEDS ORDERED: traMADol 50 MG TAB PO PRN (16:48)
--- NOTE | 2019-10-17 16:54 | P.OP ---
Date of Procedure: 10/17/19 Preoperative Diagnosis: Spinal stenosis L4 5, spondylolisthesis L4 5, disc herniation L4 5, facet arthrosis L4 5, low back pain, lower extremity radiculopathy Postoperative Diagnosis: Same Anesthesia: GETA Pathology: none sent Condition: stable Disposition: PACU Description of Procedure: DESCRIPTION OF PROCEDURE(S): BRIEF OPERATIVE NOTE Preoperative Diagnosis: Spinal stenosis L4 5, spondylolisthesis L4 5, disc herniation L4 5, facet arthrosis L4 5, low back pain, lower extremity radiculopathy Postoperative Diagnosis: Spinal stenosis L4 5, spondylolisthesis L4 5, disc herniation L4 5, facet arthrosis L4 5, low back pain, lower extremity radiculopathy Procedure:Laminectomy and decompression L4 5 Computer navigation aided Minimally invasive Posterior lateral decompression and fusion L4 5 Minimally invasive Transforaminal lumbar interbody fusion for a 360 fusion L4 5 Discectomy for decompression Placement of interbody graft L4 5 Use of computer navigation for fusion L4 5 Local autogenous bone grafting Aspiration of bone marrow from the pedicle of L4 Use of bone graft extenders Surgeon: Dr. Cabello Washery Engineer: Leo DUBOIS who is present throughout the entire the case persistence during positioning, dissection, exposure, visualization, and all crucial elements of the case as well as closure. Anesthesia: General anesthesia Estimated blood loss: Approximately 150 mL Complications: None apparent Components implanted: K2M minimally invasive Polk pedicle screw system withscrews measuring 6.5 mm in diameter to rods one Lonsdale interbody cage with 10 mL of osteo amp bio4 bone graft substitute and 30 mL of the BX bone fibers to supplement the local autogenous bone graft and bone marrow aspirate Disposition: To recovery room in good stable condition. OPERATIVE INDICATIONS The patient has had severe issues at their lower extremity in her lower back over the past several months. She has had pain in her lower back for years but has been worsening over the past several months. She is having severe radicular symptoms at her lower extremity with weakness. She is unable to obtain any comfort. We did aggressive conservative treatment with medications therapy and interventional pain management however she was not having any relief. Her imaging showed severe stenosis at L4 5 with her listhesis. She also showed evidence of a listhesis with some dynamic instability. The patient has been through conservative treatment. We discussed various treatment options including surgery, and the patient wishes to proceed with surgery We discussed the risk, patient's alternatives and benefits of surgery including but not limited to, risk of bleeding risk of infection, risk of need for further surgery, risk of decreased, loss of motion, muscle function, malunion nonunion, hardware failure, nerve damage, paralysis, heart attack, blindness and . She understood issues with the current pandemic and the possibility of exposure. OPERATIVE SUMMARY After discussing all the risks, patient alternatives and benefits at length, the patient elected to proceed with surgical intervention, signed informed consent, and presented for their procedure. The patient was seen and examined in the preoperative holding area and the surgical site was marked. The patient was given antibiotics and brought to the operating room. The patient was sedated and intubated by anesthesia in standard fashion. The patient was positioned on to the operating room table in a prone position on the appropriate frame which was well-padded and well molded. We were careful to pad any bony prominences and pressure points. We were careful to maintain the patient's cervical spine and good neutral alignment and position throughout. The patient was prepped and draped in a normal standard fashion. An appropriate timeout and keystone protocol performed. We were able to proceed with the surgery. The local wound area was infiltrated with local anesthetic. I was able utilize C-arm guidance to establish appropriate position over the pedicles bilaterally at the appropriate levels at L4 5. With the appropriate levels confirmed was able to make small stab incisions over the appropriate pedicle sites bilaterally. Utilizing C-arm in the computer navigation device I was able to establish bony landmarks at the right iliac crest for a bony reference point for the navigation device. I was able to establish a Jamshidi needle over the lateral aspect of the pedicle and advanced the trocar into the pedicle being careful not to breech superiorly inferiorly medially or laterally using computer navigation device. Position was confirmed regularly with AP and lateral images on C-arm and with the computer navigation device. I was able to establish the trocar into the pedicle appropriately into the posterior aspect of the vertebral body bilaterally at the appropriate levels of L4 5. This was done at each of the pedicle positions and each of the vertebrae. At L4 the right a history approximately 20 mL of bone marrow aspirate for use later as supplement in the case. I was able place the guidewire into the trocar and into the vertebral body appropriately under C-arm guidance. Dissection was taken down over the wire to the appropriate starting position for the screw placed. The appropriate length screw was chosen, threaded over the guidewire and screwed appropriately into the pedicle and vertebral body under C-arm guidance in excellent alignment and position with good bony purchase. This is done at each of the screw sites at the appropriate levels at L4 5. With the screws intact I extended the incision to connect the screw hole sites on the left side. I dissected down to establish access over the pars and lamina to the base of the spinous process. I was able to expose the facet joint. The capsule the facet was taken down and showed some facet arthrosis at the joint. I was able to use a combination of curettes and Kerrison rongeurs and a high- speed drill to take down the facet joint and do a facetectomy. I was able get excellent foraminal decompression and central decompression with undermining across midline to perform a laminectomy centrally and contralaterally. As able get good central decompression. The ligamentum flavum was taken down to further decompress centrally and at bilateral neural foramen. I was able to expose the disc space and visualize the traversing nerve root. Note was made of some disc protrusion and disc herniation that was adherent to the traversing nerve root at the level causing further compression of the nerve root. I was able to establish a annulotomy at the appropriate level protecting soft tissue and neural structures. I performed a complete discectomy with accommodation of curettes and rasps and scrapers. I was able get good endplate preparation at the disc space. I sized for the appropriate size interbody spacer protecting the soft tissue and neural structures. The wound was copiously irrigated and suctioned dry. There is no evidence of any dural tear or leak. I was able to pack the disc space with local autogenous bone graft as well as a small amount of bone graft which was also placed into the interbody cage itself. Protecting the soft tissue structures and neural structures I was able place the interbody cage in good alignment and good position with good fit and fill at the interbody space. His issues was confirmed with C-arm guidance. Good hemostasis maintained. There is no evidence of any dural tear or leak. The wound was irrigated and suctioned dry. With the hardware intact, intraoperative C-arm imaging was again taken which showed good alignment and position of the hardware at the appropriate levels of L4 5. We were then able to measure, contour and place the rods and appropriate hardware bilaterally. I was able to place capcrews, tighten them down, and torque them with the torque screwdriver appropriately. With this intact I was able to place the local autogenous bone graft with additional bone graft enhancer as necessary into the posterior lateral gutters over the decorticated transverse processes and facet joints on the contralateral side. The remainder of the bone graft was placed over the facet joint on the contralateral side after taking down the facet joint capsule. With the bone graft intact, a stable construct, and good decompression at the appropriate levels, we were able to proceed with closure. Good hemostasis was maintained. There is no evidence of dural tear or leak. The fascia was closed for a watertight closure. he subcuticular tissue was closed with absorbable suture. The wound was cleaned and dried and dressed with the appropriate dressing. The drapes were broken down. The patient was gently rolled back onto their hospital bed being careful to maintain their cervical spine and good neutral alignment and position. They were woken up by anesthesia, extubated, and brought to the recovery room in good stable condition. The patient will be admitted to the hospital for appropriate postoperative care, medical management and monitoring. We will continue to follow them closely about the postoperative course.
[2019-10-17 17:03] LABS: Glucose,Whole Blood 152 mg/dL (75-99)
--- NOTE | 2019-10-17 17:06 | FL ---
EXAMINATION TYPE: FL guidance operating room, XR lumbar spine 2 or 3V DATE OF EXAM: 10/17/2019 COMPARISON: NONE HISTORY: Lumbar fusion TECHNIQUE: Fluoroscopy. FINDINGS: Fluoroscopic guidance was provided during procedure for performing physician. A total of 1 5 seconds of fluoroscopic time was utilized during the procedure and 4 spot images was acquired. Plea se see operative report for additional details. IMPRESSION: As Above.
[2019-10-17] MEDS: fentaNYL (PF) 50 MCG/ML 2 ML AMP IV PRN ×2 (17:08→17:21)
[2019-10-17] MEDS ORDERED: SODIUM CHLORIDE 0.9% 1,000 ML IV ONE (17:30)
[2019-10-17] MEDS ORDERED: Insulin Aspart (For Pump) 100 UNIT/ML VIAL SQ-PUMP SCH (18:30)
[2019-10-17] MEDS: SODIUM CHLORIDE 0.9% 1,000 ML IV SCH (20:53)
[2019-10-17] MEDS: GABAPENTIN 300 MG CAP PO SCH (20:54)
[2019-10-17] MEDS ORDERED: CHOLECALCIFEROL 1,000 UNIT TAB PO SCH (21:00)
[2019-10-17] MEDS ORDERED: ATORVASTATIN 10 MG TAB PO SCH (21:00)
[2019-10-17] MEDS ORDERED: ASPIRIN 81 MG PO SCH (21:00)
[2019-10-17] MEDS ORDERED: NON FORMULARY DRUG (Vitamin C/Biotin [Hair, Skin And Nails] 1 TAB) PO SCH (21:00)
[2019-10-17] MEDS ORDERED: LEVOTHYROXINE 88 MCG TAB PO SCH (21:00)
[2019-10-17 23:30] LABS: Glucose,Whole Blood 168 mg/dL (75-99)
[2019-10-18] MEDS: HYDROcodone/APAP 5-325MG 1 EACH TAB PO PRN ×2 (00:32→08:30)
[2019-10-18] MEDS: HYDROmorphone 0.5 MG/0.5 ML SYRINGE IVP PRN ×2 (01:28→05:14)
[2019-10-18] MEDS: LACTATED RINGERS 1,000 ML IV SCH (03:27)
[2019-10-18 06:54] LABS: Glucose,Whole Blood 84 mg/dL (75-99)
[2019-10-18] MEDS: SODIUM CHLORIDE 0.9% 1,000 ML IV SCH (08:29)
[2019-10-18] MEDS: LOSARTAN 25 MG TAB PO SCH ×2 (08:31→11:26)
[2019-10-18] MEDS: GABAPENTIN 300 MG CAP PO SCH (08:31)
[2019-10-18] MEDS ORDERED: OXYBUTYNIN 10 MG TAB.ER.24 PO SCH (09:00)
[2019-10-18] MEDS ORDERED: METRONIDAZOLE 1% TOPICAL SCH (09:00)
[2019-10-18] MEDS ORDERED: SENNOSIDES-DOCUSATE SODIUM 1 EACH TAB PO SCH (09:00)
[2019-10-18 09:26] LABS: African American GFR (CKD) >90 (>60 ml/min/1.73 sqM); Anion Gap 3 mmol/L; Basophils % (A) 0 %; Blood Urea Nitrogen 9 mg/dL (7-17); Calcium 8.2 mg/dL (8.4-10.2); Carbon Dioxide 29 mmol/L (22-30); Chloride 103 mmol/L (98-107); Eosinophils # (A) 0.1 k/uL (0-0.7); Eosinophils % (A) 2 %; Glucose 128 mg/dL (74-99); HCT 35.7 % (34.0-46.0); HGB 11.3 gm/dL (11.4-16.0); Lymphocytes # (A) 0.7 k/uL (1.0-4.8); Lymphocytes % (A) 12 %; MCH 28.7 pg (25.0-35.0); MCHC 31.7 g/dL (31.0-37.0); MCV 90.4 fL (80.0-100.0); Monocytes # (A) 0.3 k/uL (0-1.0); Monocytes % (A) 5 %; Neutrophils # (A) 4.9 k/uL (1.3-7.7); Neutrophils % (A) 80 %; Non-African American GFR(CKD) >90 (>60 ml/min/1.73 sqM); Platelet Count 177 k/uL (150-450); RBC 3.95 m/uL (3.80-5.40); RDW 13.5 % (11.5-15.5); Sodium 135 mmol/L (137-145); WBC 6.2 k/uL (3.8-10.6)
[2019-10-18 09:39] LABS: Potassium 4.2 mmol/L (3.5-5.1)
--- NOTE | 2019-10-18 10:08 | P.DS ---
Providers Date of admission: 10/18/19 04:00 Attending physician: Rose Cabello Consults: 10/17/19 16:46 Consult Physician Routine Consulting Provider: Odalis Esquivel Consult Reason/Comments: Medical management Do you want consulting provider notified?: Yes Primary care physician: [facility] Hospital Course: The patient presented on the day of admission as per their operative note. She had spondylolisthesis L4 5 with severe stenosis at that level. She is having significant pain in her back and lower extremity radiculopathy and underwent her procedure as per her operative note for this. She says that her legs are doing better today. She has already been up walking around the room and she is tolerating her regular diet. Physical Exam The incision site is clean dry and intact. There is no erythema no drainage. There is no purulence no evidence of infection. There is no significant swelling and there is no drainage. Abdomen soft and nontender. Chest has good excursion with deep inspiration and expiration. The patient has active and passive range of motion intact at the upper and lower extremities. There is no acute change in neurologic status. She has sustained dorsal to plantar flexion and EHL intact. Hospital Course Postoperative day 1 status post minimally invasive decompression and fusion L4 5 for her spondylolisthesis with spinal stenosis and lower extremity rad iculopathy. The patient has been making good progress postoperatively. She has been ambulatory on her own in the hallways. She is voiding freely. She feels that she will become hole going home today. They have completed the prophylactic antibiotics without any signs or symptoms of infection. The patient has been able to advance their diet, and is tolerating diet adequately. The pain was in itially controlled with IV medications and is now controlled appropriately with oral medications. The patient has been able to increase their mobilization. The patient has progressed appropriately. I think they are in good stable condition for discharge today. They will be sent home with appropriate prescriptions. I answered their questions to the best of my ability in a language that they can understand and they are agreeable with the plan. They will follow up as directed in approximately 2 weeks or sooner if she is having any problems. Patient Condition at Discharge: Good Plan - Discharge Summary Discharge Rx Participant: Yes New Discharge Prescriptions: New HYDROcodone/APAP 5-325MG [[place] 5-325] 1 - 2 tab PO Q4HR PRN #56 tab PRN Reason: Pain No Action Cholecalciferol [Vitamin D3 (25 Mcg = 1000 Iu)] 2,000 unit PO HS Aspirin 81 mg PO HS INSULIN LISPRO (HumaLOG) [humaLOG] See Protocol SQ CONTINUOUS Gabapentin [Neurontin] 300 mg PO BID Simvastatin [Zocor] 20 mg PO HS metroNIDAZOLE 1% GEL [Metrogel 1%] 1 applic TOPICAL DAILY Tolterodine ER [Detrol LA] 4 mg PO DAILY Losartan [Cozaar] 25 mg PO DAILY Levothyroxine Sodium [Synthroid] 88 mcg PO HS estradioL [Estrace] 1 mg PO DAILY Vitamin C/Biotin [Hair, Skin and Nails] 1 tab PO HS traMADol HCL [Ultram] 50 - 100 mg PO Q6HR PRN PRN Reason: Pain Discharge Medication List Aspirin 81 mg PO HS 01/02/15 [History] Cholecalciferol [Vitamin D3 (25 Mcg = 1000 Iu)] 2,000 unit PO HS 01/02/15 [History] Gabapentin [Neurontin] 300 mg PO BID 01/02/15 [History] INSULIN LISPRO (HumaLOG) [humaLOG] See Protocol SQ CONTINUOUS 01/02/15 [History] Simvastatin [Zocor] 20 mg PO HS 01/02/15 [History] Levothyroxine Sodium [Synthroid] 88 mcg PO HS 06/10/19 [History] Losartan [Cozaar] 25 mg PO DAILY 06/10/19 [History] Tolterodine ER [Detrol LA] 4 mg PO DAILY 06/10/19 [History] estradioL [Estrace] 1 mg PO DAILY 06/10/19 [History] metroNIDAZOLE 1% GEL [Metrogel 1%] 1 applic TOPICAL DAILY 06/10/19 [History] Vitamin C/Biotin [Hair, Skin and Nails] 1 tab PO HS 10/10/19 [History] traMADol HCL [Ultram] 50 - 100 mg PO Q6HR PRN 10/10/19 [History] HYDROcodone/APAP 5-325MG [[place] 5-325] 1 - 2 tab PO Q4HR PRN #56 tab 10/18/19 [Rx] Follow up Appointment(s)/Referral(s): Rose Cabello DO [Doctor of Osteopathic Medicine] - 2 Weeks Activity/Diet/Wound Care/Special Instructions: Keep site clean. May shower with waterproof Tegaderm intact. Do not soak in a tub. After 72 hours postoperatively, patient May remove dressing and then may shower with area uncovered. May ambulate as tolerated. Avoid heavy or rigorous activity. No repetitive bending twisting or lifting. No overhead work. Discharge Disposition: HOME SELF-CARE
[2019-10-18 11:07] LABS: Glucose,Whole Blood 230 mg/dL (75-99)
[2019-10-18 11:49] VITALS: BP 123/65; PULSE 86; RESP 18; TEMP 98
== END 2019-10-18 12:36 | disposition home or self-care (01) ==
LOC: OR 10:51 → 5NMEDONC 17:26 → OR 10-18 04:06
PROVIDERS: ADMIT Orthopaedic Surgery Orthopaedic Surgery of the Spine; ATTEND Orthopaedic Surgery Orthopaedic Surgery of the Spine
DX: M48.061 Spinal stenosis, lumbar region without neurogenic claudication (principal); M43.16 Spondylolisthesis, lumbar region; M51.16 Intervertebral disc disorders with radiculopathy, lumbar region; Z79.890 Hormone replacement therapy; Z79.4 Long term (current) use of insulin; Z79.899 Other long term (current) drug therapy; Z79.82 Long term (current) use of aspirin; Z91.040 Latex allergy status; Z82.49 Family history of ischemic heart disease and other diseases of the circulatory system; Z88.5 Allergy status to narcotic agent
CPT/HCPCS: 22633; 63030; 22853; 20930; 94760; 97162; 80048; 85025; 72100; G0378; C1713; J2250; J2710; J0690 ×3; J2405; J2001; J3010; J1170 ×2; J0330; J2704; 86850; 86900; 86901